=== PATIENT | female | born 1995 | race American Indian/Alaskan Native ===

== ENCOUNTER 2018-06-05 18:25 | Inpatient (IN) | payer MEDICAID ==
[2018-06-05] MEDS ORDERED: STADOL IV PRN (19:42)
[2018-06-05] MEDS ORDERED: MINERAL OIL PO PRN (19:42)
[2018-06-05] MEDS ORDERED: BRETHINE SUB-Q PRN (19:42)
[2018-06-05] MEDS ORDERED: BRETHINE IVP PRN (19:42)
[2018-06-05] MEDS ORDERED: PITOCin/NS 20 UNIT/1000ML DRIP 20 UNITS/1,000 ML BAG IV SCH (20:00)
[2018-06-05] MEDS ORDERED: XYLOCAINE 2% INFILTRATI ONE (20:00)
[2018-06-05] MEDS ORDERED: CERVIDIL VG ONE (20:42)
--- NOTE | 2018-06-05 21:01 | Ultrasound Report ---
FINAL REPORT EXAM: US OB LIMITED HISTORY: CONFIRM PRESENCE OF FHTs TECHNIQUE: Limited obstetrical ultrasound PRIORS: None. FINDINGS: LMP: 09/22/2017 clinical Age: 36 W 4 D US Age (average) 35 W 4 D LMP EDC 06/29/2018 US EDC 07/06/2018 Presentation: Cephalic Cardiac motion: No heart tones are noted on either power Doppler or color Doppler. movement: None visible during the exam. appearance: There is generalized subcutaneous edema of the soft tissues which is typically attributable to demise. IMPRESSION: No evidence for viability. No motion or cardiac activity is noted. Generalized subcutaneous edema of the fetus is seen which is typically attributed to demise.
[2018-06-05 21:41] LABS: Hematocrit 39.8 % (30.3-42.9); Hemoglobin 13.5 gm/dl (10.1-14.3); Mean Corpuscular HGB Conc 34 % (30-34); Mean Corpuscular Hemoglobin 31 pg (28-32); Mean Corpuscular Volume 92 fl (79-97); Platelet Count 164 K/mm3 (140-440); Red Blood Count 4.35 M/mm3 (3.65-5.03); Red Cell Distribution Width 13.2 % (13.2-15.2)
[2018-06-05 21:50] LABS: Amphetamine Screen,Urine PRESUMPTIVE NEGATIVE; Benzodiazepines Screen,Urine PRESUMPTIVE NEGATIVE; Cannabinoid Screen,Urine PRESUMPTIVE NEGATIVE; Cocaine Screen,Urine PRESUMPTIVE NEGATIVE; Methadone Screen,Urine PRESUMPTIVE NEGATIVE; Opiate Screen,Urine PRESUMPTIVE NEGATIVE
[2018-06-05] MEDS: ZOFRAN IV PRN (22:08)
[2018-06-05] MEDS: TYLENOL PO PRN (23:09)
[2018-06-05] MEDS ORDERED: AMBIEN PO PRN (23:14)
[2018-06-06] MEDS: LACTATED RINGERS 1,000 ML IV SCH ×3 (02:00→18:51)
[2018-06-06] MEDS ORDERED: ATIVAN IV ONE (02:23)
[2018-06-06] MEDS ORDERED: XYLOCAINE 2% INFILTRATI ONE (02:56)
[2018-06-06] MEDS ORDERED: ePHEDrine SULFATE IV PRN (02:56)
[2018-06-06] MEDS ORDERED: MINERAL OIL PO PRN (02:56)
[2018-06-06] MEDS ORDERED: BRETHINE SUB-Q PRN (02:56)
[2018-06-06] MEDS ORDERED: BRETHINE IVP PRN (02:56)
[2018-06-06] MEDS ORDERED: PITOCin/NS 30 UNIT/500ML 30 UNITS/500 ML BAG IV SCH ×2 (03:00)
[2018-06-06] MEDS ORDERED: PITOCin/NS 20 UNIT/1000ML DRIP 20 UNITS/1,000 ML BAG IV SCH (03:00)
--- NOTE | 2018-06-06 03:10 | History and Physical Report ---
History of Present Illness Date of examination: 06/06/18 Chief complaint: Decreased movement History of present illness: Pt is a 22yo BF EDC 06/29/18; EGA 36 4/7 weeks presents to L&D complaining of decreased movement x 2 weeks. She was sent to L&D after no FHT's obtained in the office - u/s confirmed demise. She received late care at [facility] at 29 weeks after transfer from [place] , and co-managed by [facility] for GDM. records are available. Past History Past Medical History: asthma Past Surgical History: no surgical history Family/Genetic History: none Social history: no significant social history, single - Obstetrical History Expected Date of Delivery: 06/29/18 Actual Gestation: 36 Week(s) 5 Day(s) : 1 Medications and Allergies Allergies Allergy/AdvReac Type Severity Reaction Status Date / Time No Known Allergies Allergy Unverified 06/05/18 18:38 Active Meds: Active Medications Acetaminophen (Tylenol) 650 mg PO Q6H PRN PRN Reason: Pain, Mild (1-3) Last Admin: 06/05/18 23:09 Dose: 650 mg Butorphanol Tartrate (Stadol) 2 mg IV Q2H PRN PRN Reason: Pain , Severe (7-10) Last Admin: 06/06/18 02:15 Dose: 2 mg Ephedrine Sulfate (Ephedrine Sulfate) 10 mg IV Q2M PRN PRN Reason: Hypotension Ephedrine Sulfate (Ephedrine Sulfate) 10 mg IV Q2M PRN PRN Reason: Hypotension Fentanyl (Sublimaze) 100 mcg IV Q2H PRN PRN Reason: Labor Pain Lactated Ringer's (Lactated Ringers) 1,000 mls @ 125 mls/hr IV DIRECT GAVIN Oxytocin/Sodium Chloride (Pitocin/Ns 20 Unit/1000ml Drip) 20 units in 1,000 mls @ 125 mls/hr IV DIRECT GAVIN Lactated Ringer's (Lactated Ringers) 1,000 mls @ 125 mls/hr IV DIRECT GAVIN Oxytocin/Sodium Chloride (Pitocin/Ns 20 Unit/1000ml Drip) 20 units in 1,000 mls @ 125 mls/hr IV DIRECT GAVIN Oxytocin/Sodium Chloride (Pitocin/Ns 30 Unit/500ml) 30 units in 500 mls @ 1 mls /hr IV TITR GAVIN; Protocol Oxytocin/Sodium Chloride (Pitocin/Ns 30 Unit/500ml) 30 units in 500 mls @ 4 mls /hr IV TITR GAVIN; Protocol Lidocaine (Xylocaine 2%) 20 ml INFILTRATI ONCE ONE Stop: 06/06/18 02:57 Mineral Oil (Mineral Oil) 30 ml PO QHS PRN PRN Reason: Constipation Mineral Oil (Mineral Oil) 30 ml PO QHS PRN PRN Reason: Constipation Ondansetron HCl (Zofran) 4 mg IV Q8H PRN PRN Reason: Nausea And Vomiting Last Admin: 06/05/18 22:08 Dose: 4 mg Terbutaline Sulfate (Brethine) 0.25 mg SUB-Q ONCE PRN PRN Reason: Hyperstimulation/Hypertonicity Terbutaline Sulfate (Brethine) 0.25 mg IVP ONCE PRN PRN Reason: Hyperstimulation/Hypertonicity Terbutaline Sulfate (Brethine) 0.25 mg SUB-Q ONCE PRN PRN Reason: Hyperstimulation/Hypertonicity Terbutaline Sulfate (Brethine) 0.25 mg IVP ONCE PRN PRN Reason: Hyperstimulation/Hypertonicity Zolpidem Tartrate (Ambien) 10 mg PO QHS PRN PRN Reason: Insomnia Review of Systems All systems: negative - Vital Signs Vital signs: Vital Signs Pulse BP 91 H 118/60 06/05/18 19:16 06/05/18 19:16 Temp Pulse Resp BP Pulse Ox 99.1 F 90 14 98/49 96 06/06/18 02:28 06/06/18 03:06 06/06/18 02:28 06/06/18 02:57 06/06/18 03:06 - Physical Exam Breasts: Positive: deferred Lungs: Positive: Clear to auscultation Abdomen: Positive: normal appearance, soft Genitourinary (Female): Positive: normal external genitalia Uterus: Positive: enlarged Extremities: Positive: normal - Obstetrical Uterine Contraction Monitor Mode: External Results Result Diagrams: 06/05/18 21:20 Abnormal lab results 06/05/18 Range/Units 21:04 POC Glucose 215 H (70-105) All other labs normal. Ultrasound: report reviewed Assessment and Plan - Patient Problems (1) 36 weeks gestation of Onset Date: 06/06/18 Current Visit: Yes Status: Acute Plan to address problem: A: IUP @ 36 5/7 weeks demise Uncontrolled GDM New onset seizures P: Admit to L&D for induction of labor Monitor BS's Obtain Hospitalist consultation re: possible seizures (2) demise > 22 weeks, delivered, current hospitalization Onset Date: 06/06/18 Current Visit: Yes Status: Acute (3) GDM (gestational diabetes mellitus) Onset Date: 06/06/18 Current Visit: Yes Status: Acute Qualifiers: Gestational diabetes mellitus control: diet-controlled Trimester: third trimester Qualified Code(s): O24.410 - Gestational diabetes mellitus in , diet controlled
[2018-06-06 06:28] LABS: INR 0.9 (0.87-1.13)
[2018-06-06 06:29] LABS: Partial Thromboplastin Time 26.4 Sec. (24.2-36.6)
[2018-06-06 07:01] LABS: Alanine Aminotransferase 17 units/L (7-56); Albumin 3.3 g/dL (3.9-5); BUN/Creatinine Ratio 12; Blood Urea Nitrogen 7 mg/dL (7-17); Calcium 8.9 mg/dL (8.4-10.2); Hemolysis Index 13
[2018-06-06] MEDS ORDERED: LOMOTIL PO PRN (11:38)
[2018-06-06] MEDS: [UNRECOGNIZED DRUG - OTHER] VG SCH ×2 (13:47→19:49)
[2018-06-06] MEDS: SUBLIMAZE IV PRN ×3 (15:09→21:32)
[2018-06-06] MEDS: ZOFRAN IV PRN (23:50)
[2018-06-07] MEDS ORDERED: D50W (25GM) Syringe IV PRN (00:28)
[2018-06-07] MEDS: LACTATED RINGERS 1,000 ML IV SCH ×4 (00:36→03:53)
[2018-06-07] MEDS: SUBLIMAZE IV PRN (00:40)
[2018-06-07] MEDS: HumuLIN R SUB-Q SCH ×2 (00:52→06:54)
[2018-06-07] MEDS ORDERED: NARCAN 2 MG/2 ML IV PRN (02:22)
--- NOTE | 2018-06-07 02:22 | Anesthesia Consultation ---
Anesthesia Consult and Med Hx Date of service: 06/07/18 - Airway ROM Head & Neck: Adequate Mental/Hyoid Distance: Adequate Mallampati Class: Class II Intubation Access Assessment: Probably Good - Pulmonary Exam CTA: Yes - Cardiac Exam Cardiac Exam: RRR - Pre-Operative Health Status ASA Pre-Surgery Classification: ASA2 Proposed Anesthetic Plan: Epidural - Pulmonary Hx Asthma: No - Cardiovascular System Hx Hypertension: No - Central Nervous System Hx Seizures: Yes (as a child last was 9 yrs old) Hx Psychiatric Problems: No - Endocrine Hx Renal Disease: No Hx Hypothyroidism: No Hx Hyperthyroidism: No - Hematic Hx Anemia: No Hx Sickle Cell Disease: No - Other Systems Hx Alcohol Use: No
[2018-06-07] MEDS: [UNRECOGNIZED DRUG - OTHER] VG SCH ×2 (02:23→10:04)
[2018-06-07] MEDS: ePHEDrine SULFATE IV PRN ×5 (02:49→03:15)
[2018-06-07] MEDS: fentaNYL-BUPIV 2 MCG/ML-0.125% 200 MCG/100 ML BAG EPIDURAL SCH ×2 (03:53→12:35)
[2018-06-07] MEDS: TYLENOL PO PRN ×2 (05:47→12:39)
--- NOTE | 2018-06-07 10:13 | Progress Note ---
Assessment and Plan - Patient Problems (1) 36 weeks gestation of Onset Date: 06/06/18 Current Visit: Yes Status: Acute Plan to address problem: A: IUP @ 36 4/7 weeks demise Uncontrolled GDM New onset seizures P: Continue with Prostin induction of labor Monitor BS's Expectant vaginal delivery (2) demise > 22 weeks, delivered, current hospitalization Onset Date: 06/06/18 Current Visit: Yes Status: Acute (3) GDM (gestational diabetes mellitus) Onset Date: 06/06/18 Current Visit: Yes Status: Acute Qualifiers: Gestational diabetes mellitus control: diet-controlled Trimester: third trimester Qualified Code(s): O24.410 - Gestational diabetes mellitus in , diet controlled Subjective - Subjective Date of service: 06/07/18 Principal diagnosis: IUP @ 36 5/7 weeks; IUFD; GDM Interval history: Pt is a 22yo BF EDC 06/29/18; EGA 36 4/7 weeks who presented to L&D complaining of decreased movement x 2 weeks. She was sent to L&D after no FHT's obtained in the office - u/s confirmed demise. She received cervidil followed by Prostin, and currently jesusita q 2 mins with epidural in place. Patient reports: contractions, no new complaints, no vaginal bleeding, no movement normal Objective - Vital Signs Vital Signs: Vital Signs - 12hr 06/06/18 06/06/18 06/06/18 22:11 22:16 22:21 Temperature Pulse Rate 79 93 H 91 H Respiratory Rate Blood Pressure O2 Sat by Pulse 98 99 98 Oximetry 06/06/18 06/06/18 06/06/18 22:26 22:31 22:36 Temperature Pulse Rate 99 H 94 H 99 H Respiratory Rate Blood Pressure O2 Sat by Pulse 99 97 98 Oximetry 06/06/18 06/06/18 06/06/18 22:41 22:46 23:54 Temperature 98.9 F Pulse Rate 93 H 100 H Respiratory 20 Rate Blood Pressure O2 Sat by Pulse 96 100 Oximetry 06/06/18 06/07/18 06/07/18 23:57 00:02 00:07 Temperature Pulse Rate 100 H 101 H 98 H Respiratory Rate Blood Pressure 126/77 O2 Sat by Pulse 99 97 98 Oximetry 06/07/18 06/07/18 06/07/18 00:09 00:12 00:17 Temperature Pulse Rate 115 H 107 H 106 H Respiratory Rate Blood Pressure O2 Sat by Pulse 93 99 98 Oximetry 06/07/18 06/07/18 06/07/18 00:21 00:22 00:27 Temperature Pulse Rate 89 99 H 99 H Respiratory Rate Blood Pressure O2 Sat by Pulse 94 98 98 Oximetry 06/07/18 06/07/18 06/07/18 00:32 00:33 00:37 Temperature Pulse Rate 113 H 112 H 73 Respiratory Rate Blood Pressure O2 Sat by Pulse 98 82 L 79 L Oximetry 06/07/18 06/07/18 06/07/18 00:38 00:42 00:46 Temperature Pulse Rate 86 92 H 85 Respiratory Rate Blood Pressure O2 Sat by Pulse 86 96 94 Oximetry 06/07/18 06/07/18 06/07/18 00:47 00:52 00:56 Temperature Pulse Rate 92 H 87 82 Respiratory Rate Blood Pressure O2 Sat by Pulse 93 94 94 Oximetry 06/07/18 06/07/18 06/07/18 00:57 01:02 01:03 Temperature Pulse Rate 84 82 87 Respiratory Rate Blood Pressure O2 Sat by Pulse 94 95 94 Oximetry 06/07/18 06/07/18 06/07/18 01:07 01:12 01:15 Temperature Pulse Rate 94 H 76 92 H Respiratory Rate Blood Pressure O2 Sat by Pulse 96 96 94 Oximetry 06/07/18 06/07/18 06/07/18 01:17 01:22 01:27 Temperature Pulse Rate 101 H 77 84 Respiratory Rate Blood Pressure O2 Sat by Pulse 95 95 96 Oximetry 06/07/18 06/07/18 06/07/18 01:32 01:37 01:42 Temperature Pulse Rate 90 86 119 H Respiratory Rate Blood Pressure O2 Sat by Pulse 99 97 98 Oximetry 06/07/18 06/07/18 06/07/18 02:23 02:31 02:32 Temperature 98.9 F Pulse Rate 111 H 121 H Respiratory Rate Blood Pressure 134/86 O2 Sat by Pulse 99 Oximetry 06/07/18 06/07/18 06/07/18 02:34 02:36 02:39 Temperature Pulse Rate 125 H 109 H 110 H Respiratory Rate Blood Pressure 141/82 136/64 139/84 O2 Sat by Pulse 99 Oximetry 06/07/18 06/07/18 06/07/18 02:40 02:41 02:42 Temperature Pulse Rate 98 H 103 H 104 H Respiratory Rate Blood Pressure 141/65 140/67 O2 Sat by Pulse 99 Oximetry 06/07/18 06/07/18 06/07/18 02:44 02:46 02:47 Temperature Pulse Rate 103 H 105 H 103 H Respiratory Rate Blood Pressure 137/60 140/63 O2 Sat by Pulse 98 Oximetry 06/07/18 06/07/18 06/07/18 02:51 02:52 02:54 Temperature Pulse Rate 98 H 97 H 100 H Respiratory Rate Blood Pressure 102/53 89/45 83/46 O2 Sat by Pulse 97 Oximetry 06/07/18 06/07/18 06/07/18 02:56 02:59 03:00 Temperature Pulse Rate 137 H 146 H 150 H Respiratory Rate Blood Pressure 133/74 99/58 113/61 O2 Sat by Pulse 98 Oximetry 06/07/18 06/07/18 06/07/18 03:02 03:04 03:06 Temperature Pulse Rate 154 H 146 H 142 H Respiratory Rate Blood Pressure 115/67 117/63 111/62 O2 Sat by Pulse 97 Oximetry 06/07/18 06/07/18 06/07/18 03:07 03:12 03:14 Temperature Pulse Rate 141 H 121 H 113 H Respiratory Rate Blood Pressure 101/51 104/54 O2 Sat by Pulse 97 97 Oximetry 06/07/18 06/07/18 06/07/18 03:17 03:22 03:27 Temperature Pulse Rate 113 H 123 H 116 H Respiratory Rate Blood Pressure 98/51 137/67 121/57 O2 Sat by Pulse 97 98 97 Oximetry 06/07/18 06/07/18 06/07/18 03:32 03:37 03:38 Temperature Pulse Rate 105 H 109 H 106 H Respiratory Rate Blood Pressure 118/62 116/55 O2 Sat by Pulse 97 98 Oximetry 06/07/18 06/07/18 06/07/18 03:42 03:47 03:52 Temperature Pulse Rate 106 H 105 H 97 H Respiratory Rate Blood Pressure 116/58 111/57 O2 Sat by Pulse 97 98 98 Oximetry 06/07/18 06/07/18 06/07/18 03:53 03:57 03:58 Temperature Pulse Rate 99 H 100 H 100 H Respiratory Rate Blood Pressure 116/61 118/59 O2 Sat by Pulse 98 Oximetry 2018 /20/18 / 03:59 04:02 04:03 Temperature 98.1 F Pulse Rate 109 H 104 H Respiratory 18 Rate Blood Pressure 115/57 O2 Sat by Pulse 98 Oximetry 06/07/18/18 / 04:07 04:12 04:17 Temperature Pulse Rate 95 H 106 H 103 H Respiratory Rate Blood Pressure O2 Sat by Pulse 98 98 98 Oximetry 06/07/18 06/07/18 06/07/18 04:19 04:22 04:27 Temperature Pulse Rate 114 H 106 H 101 H Respiratory Rate Blood Pressure 117/65 O2 Sat by Pulse 98 98 Oximetry 06/07/18 06/07/18/ 04:32 04:34 04:37 Temperature Pulse Rate 92 H 97 H 100 H Respiratory Rate Blood Pressure 114/57 O2 Sat by Pulse 98 98 Oximetry 06/07/18//18 06/07/18 04:42 04:47 04:50 Temperature Pulse Rate 104 H 104 H 105 H Respiratory Rate Blood Pressure 111/61 O2 Sat by Pulse 98 98 Oximetry 06/07/1818 06/07/18 04:52 04:57 05:02 Temperature Pulse Rate 96 H 101 H 95 H Respiratory Rate Blood Pressure O2 Sat by Pulse 98 98 99 Oximetry 06/07/18 06/07/18 06/07/18 05:04 05:07 05:12 Temperature Pulse Rate 115 H 102 H 100 H Respiratory Rate Blood Pressure 119/64 O2 Sat by Pulse 98 98 Oximetry 06/07/18 06/07/18 06/07/18 05:17 05:19 05:22 Temperature Pulse Rate 101 H 103 H 105 H Respiratory Rate Blood Pressure 120/61 O2 Sat by Pulse 98 99 Oximetry 20/18 /20/18 /20 05:27 05:32 05:36 Temperature Pulse Rate 104 H 122 H 130 H Respiratory Rate Blood Pressure 118/70 O2 Sat by Pulse 99 99 Oximetry 20/05 06/20/18 / 05:37 05:42 05:47 Temperature Pulse Rate 141 H 143 H 127 H Respiratory Rate Blood Pressure O2 Sat by Pulse 99 98 99 Oximetry 06/07/1818 06/07/18 05:52 05:57 06:00 Temperature 97.5 F L Pulse Rate 110 H 118 H Respiratory 16 Rate Blood Pressure O2 Sat by Pulse 98 99 Oximetry 06/07/18 06/07/18 06/07/18 06:02 06:07 06:12 Temperature Pulse Rate 114 H 119 H 107 H Respiratory Rate Blood Pressure O2 Sat by Pulse 98 98 99 Oximetry 18 /20/18 / 06:17 06:22 06:27 Temperature Pulse Rate 107 H 114 H 109 H Respiratory Rate Blood Pressure O2 Sat by Pulse 99 99 99 Oximetry 06/07/1806/07/18 06/07/18 06:32 06:37 06:42 Temperature Pulse Rate 108 H 112 H 115 H Respiratory Rate Blood Pressure O2 Sat by Pulse 100 100 99 Oximetry 06/07/18 06/07/18 06/07/18 06:47 06:49 06:52 Temperature Pulse Rate 121 H 115 H 107 H Respiratory Rate Blood Pressure 121/66 O2 Sat by Pulse 99 99 Oximetry 06/07/18 06/07/18 06/07/18 06:57 07:02 07:07 Temperature Pulse Rate 129 H 127 H 116 H Respiratory Rate Blood Pressure O2 Sat by Pulse 100 100 99 Oximetry 06/07/1806/07/18 06/07/18 07:12 07:17 07:22 Temperature Pulse Rate 127 H 132 H 141 H Respiratory Rate Blood Pressure O2 Sat by Pulse 98 100 100 Oximetry 06/07/1818 06/07/18 07:27 07:32 07:37 Temperature Pulse Rate 137 H 123 H 133 H Respiratory Rate Blood Pressure O2 Sat by Pulse 100 98 99 Oximetry 06/07/1818 06/07/18 07:42 07:47 07:50 Temperature Pulse Rate 126 H 124 H 125 H Respiratory Rate Blood Pressure 104/55 O2 Sat by Pulse 99 100 Oximetry 06/07/1820/18 06/07/18 07:52 07:57 08:02 Temperature Pulse Rate 115 H 117 H 112 H Respiratory Rate Blood Pressure O2 Sat by Pulse 99 99 100 Oximetry 06/07/18/20/18 06/07/18 08:07 08:12 08:17 Temperature Pulse Rate 121 H 120 H 127 H Respiratory Rate Blood Pressure O2 Sat by Pulse 100 99 100 Oximetry 06/07/18 06/07/18 06/07/18 08:20 08:22 08:27 Temperature Pulse Rate 68 148 H 120 H Respiratory Rate Blood Pressure O2 Sat by Pulse 85 99 100 Oximetry 06/07/18 06/07/18 06/07/18 08:32 08:37 08:42 Temperature Pulse Rate 127 H 126 H 124 H Respiratory Rate Blood Pressure O2 Sat by Pulse 99 99 99 Oximetry 06/07/18 06/07/18 06/07/18 08:47 08:49 08:52 Temperature Pulse Rate 122 H 130 H 130 H Respiratory Rate Blood Pressure 109/57 O2 Sat by Pulse 100 99 Oximetry 06/07/18 06/07/18 06/07/18 08:57 09:02 09:07 Temperature Pulse Rate 119 H 121 H 125 H Respiratory Rate Blood Pressure O2 Sat by Pulse 99 99 99 Oximetry 06/07/18 06/07/18 06/07/18 09:12 09:17 09:22 Temperature Pulse Rate 144 H 138 H 142 H Respiratory Rate Blood Pressure O2 Sat by Pulse 99 98 99 Oximetry 06/07/18 06/07/18 06/07/18 09:40 09:45 09:50 Temperature Pulse Rate 140 H 128 H 129 H Respiratory Rate Blood Pressure O2 Sat by Pulse 100 100 100 Oximetry 06/07/18 06/07/18 06/07/18 09:55 10:00 10:05 Temperature Pulse Rate 116 H 118 H 137 H Respiratory Rate Blood Pressure O2 Sat by Pulse 100 100 100 Oximetry 06/07/18 10:10 Temperature Pulse Rate 107 H Respiratory Rate Blood Pressure O2 Sat by Pulse 100 Oximetry - Exam Abdomen: Present: normal appearance, soft Uterus: Present: normal Cervical Dilatation: 5.5 (per nurse) Cervical Effacement Percentage: 90 (per nurse) station: -1 Uterine Contraction Pattern: Regular Uterine Tone Measurement Phase: Contraction Uterine Contraction Intensity: Moderate - Labs Labs: Abnormal Labs 06/05/18 06/06/18 06/06/18 21:04 02:38 05:52 Sodium 135 L Chloride 97.4 L Creatinine 0.6 L Glucose 210 H POC Glucose 215 H 225 H Hemoglobin A1c Total Protein 5.7 L Albumin 3.3 L 06/06/18 06/06/18 06/07/18 05:52 18:07 00:55 Sodium Chloride Creatinine Glucose POC Glucose 265 H 250 H Hemoglobin A1c 9.8 H Total Protein Albumin 06/07/18 05:51 Sodium Chloride Creatinine Glucose POC Glucose 241 H Hemoglobin A1c Total Protein Albumin Laboratory Results - last 24 hr 06/05/18 06/06/18 06/07/18 21:20 18:07 00:55 POC Glucose 265 H 250 H RPR Nonreactive 06/07/18 05:51 POC Glucose 241 H RPR
[2018-06-07] MEDS ORDERED: ATIVAN IV ONE (10:14)
[2018-06-07] MEDS ORDERED: XYLOCAINE 2% INFILTRATI ONE (15:07)
--- NOTE | 2018-06-07 15:39 | Procedure Note ---
OB Delivery Note - Delivery Date of Delivery: 06/07/18 Surgeon: LIBBY BECK Estimated blood loss: 300cc - Vaginal Delivery presentation: vertex Delivery position: OA Intrapartum events: PROM->1hr before delivery, shoulder dystocia Delivery induction: cervidil Delivery augmentation: rupture of membranes Delivery monitor: external uterine Route of delivery: vacuum extraction Indicators for instrumentation: maternal exhaustion Delivery placenta: spontaneous Delivery cord: 3 umbilical vessels Episiotomy: none Delivery laceration: 3rd degree Delivery repair: vicryl Anesthesia: epidural Delivery comments: Infant delivered with the aid of a vacuum - 2 pulls, 1 pop-off, followed by shoulder dystocia resolved by delivery of the posterior arm followed by rotation of the body. - Infant A at 1 minute: 0 at 5 minutes: 0 Infant Gender: Female ([id number])
[2018-06-07] MEDS ORDERED: MILK OF MAGNESIA PO PRN (15:50)
[2018-06-07] MEDS ORDERED: DULCOLAX PR PRN (15:50)
[2018-06-07] MEDS ORDERED: TUCKS PAD TP PRN (15:50)
[2018-06-07] MEDS ORDERED: PHENERGAN PR PRN (15:50)
[2018-06-07] MEDS ORDERED: TYLENOL PO PRN (15:50)
[2018-06-07] MEDS ORDERED: BENADRYL PO PRN (15:50)
[2018-06-07] MEDS ORDERED: LANSINOH TP PRN (15:50)
[2018-06-07] MEDS ORDERED: ZOFRAN IV PRN (15:50)
[2018-06-07] MEDS ORDERED: PHENERGAN PO PRN (15:50)
[2018-06-07] MEDS ORDERED: SODIUM CHLORIDE FLUSH SYRINGE 10 ML IV NR (16:00)
[2018-06-07] MEDS ORDERED: PITOCin/NS 20 UNIT/1000ML DRIP 20 UNITS/1,000 ML BAG IV SCH (16:00)
[2018-06-07] MEDS: NORCO 5/325 PO PRN (18:15)
[2018-06-07] MEDS: FEOSOL PO SCH (23:01)
[2018-06-07] MEDS: COLACE PO SCH (23:02)
[2018-06-07] MEDS: MOTRIN PO SCH (23:02)
[2018-06-08] MEDS: HumuLIN R SUB-Q SCH ×4 (00:37→18:29)
[2018-06-08] MEDS: MOTRIN PO SCH ×2 (04:21→13:15)
[2018-06-08 05:48] LABS: Hemoglobin 11.2 gm/dl (10.1-14.3)
[2018-06-08] MEDS ORDERED: M-M-R II VACCINE SUB-Q ONE (06:00)
[2018-06-08] MEDS ORDERED: BOOSTRIX IM ONE (06:00)
--- NOTE | 2018-06-08 10:16 | Progress Note ---
Assessment and Plan A: day 1 S/P VAVD of stillborn infant (IUFD). P: Will put in case management consult for grief counseling. Anticipate discharge tomorrow. Subjective - Subjective Date of service: 06/08/18 Principal diagnosis: day 1 S/P VAVD following IUFD Interval history: day 1 S/P VAVD following IUFD. Patient is voiding without difficulty and ambulating well. Tolerating a regular diet without nausea or vomiting. Patient reports small amount of lochia. Patient denies headache, chest pain, cough, shortness of breath, leg pain, symptoms of depression, or heavy bleeding. Patient reports: appetite normal, voiding normally, pain well controlled, flatus , ambulating normally : Objective - Vital Signs Latest vital signs: Vital Signs Temp Pulse Resp BP Pulse Ox 06/08/18 08:40 98.4 F 94 H 18 115/68 06/08/18 04:21 17 06/08/18 04:20 98.2 F 102 H 18 105/73 06/08/18 00:00 98.4 F 106 H 18 110/59 97 06/07/18 23:02 18 06/07/18 18:45 97.9 F 120 H 18 113/63 99 06/07/18 15:10 134 H 100 06/07/18 15:05 153 H 94 06/07/18 14:31 157 H 100 06/07/18 14:26 139 H 100 06/07/18 14:21 149 H 99 06/07/18 14:16 142 H 100 06/07/18 14:10 137 H 98 06/07/18 14:05 147 H 100 06/07/18 14:00 98.7 F 128 H 99 06/07/18 13:55 134 H 100 06/07/18 13:50 137 H 100 06/07/18 13:45 129 H 100 06/07/18 13:40 125 H 100 06/07/18 13:35 145 H 100 06/07/18 13:30 136 H 100 06/07/18 13:25 141 H 100 06/07/18 13:20 153 H 100 06/07/18 13:15 142 H 100 06/07/18 13:10 154 H 100 06/07/18 13:05 151 H 99 06/07/18 13:00 142 H 100 07/20/18 12:55 149 H 100 18 12:50 141 H 100 18 12:45 145 H 100 18 12:40 143 H 100 18 12:38 140 H 94 18 12:35 151 H 100 18 12:30 141 H 100 18 12:25 133 H 100 06/07/18 12:20 133 H 100 06/07/18 12:15 141 H 100 06/07/18 12:10 149 H 97 06/07/18 12:08 149 H 91 06/07/18 12:05 138 H 100 06/07/18 12:00 99.7 F H 135 H 22 125/87 98 06/07/18 11:57 147 H 92 06/07/18 11:55 125 H 100 06/07/18 11:50 147 H 100 06/07/18 11:45 137 H 100 06/07/18 11:40 131 H 100 06/07/18 11:35 120 H 100 06/07/18 11:30 122 H 100 18 11:25 116 H 100 06/07/18 11:20 120 H 100 18 11:15 124 H 100 06/07/18 11:10 130 H 100 06/07/18 11:05 127 H 100 06/07/18 11:00 138 H 100 18 10:55 143 H 100 18 10:50 110 H 100 18 10:45 105 H 100 06/07/18 10:40 117 H 100 06/07/18 10:35 108 H 100 18 10:30 110 H 100 18 10:25 114 H 100 18 10:20 110 H 100 18 10:15 99.2 F 111 H 100 Intake and Output 06/07/1818 06/08/18 23:59 07:59 15:59 Intake Total 360 Output Total 500 Balance -140 Intake: Oral 360 Output: Urine 500 Void 500 Other: Total, Intake Amount 360 Total, Output Amount 500 # Voids Void 1 - Exam Breasts: Present: deferred Cardiovascular: Present: Regular rate, Normal S1, Normal S2, No murmurs Lungs: Present: Clear to auscultation Abdomen: Present: normal appearance, soft. Absent: distention, tenderness, guarding, rigidity Uterus: Present: normal, firm, fundal height below umbilicus. Absent: bogginess , tenderness Extremities: Present: normal. Absent: tenderness, edema - Labs Labs: Abnormal lab results 06/08/18 06/08/18 Range/Units 00:26 06:31 POC Glucose 344 H 199 H (70-105)
[2018-06-08] MEDS: FEOSOL PO SCH (12:31)
[2018-06-08] MEDS: COLACE PO SCH (12:31)
[2018-06-08] MEDS: PRENATAL VITAMIN PO SCH (12:31)
[2018-06-08] MEDS: NORCO 5/325 PO PRN (14:04)
--- NOTE | 2018-06-08 19:57 | History and Physical Report ---
History of Present Illness Date of examination: 06/08/18 Date of admission: 06/05/18 18:26 Chief complaint: Chief complaint : New onset seizures on 06/06/2018 History of present illness: History of present illness: IUP @ 36 5/7 weeks with demise. Uncontrolled gestational diabetes mellitus New onset seizures----tonic-clonic seizures lasting for a few minutes. No tongue biting. Past History Past Medical History: diabetes Past Surgical History: No surgical history Social history: no significant social history, single Medications and Allergies Allergies Allergy/AdvReac Type Severity Reaction Status Date / Time No Known Allergies Allergy Unverified 06/05/18 18:38 Home Medications Medication Instructions Recorded Confirmed Last Taken Type No Known Home Medications [No 06/06/18 06/06/18 Unknown History Reported Home Medications] Active Meds: Active Medications Acetaminophen (Tylenol) 650 mg PO Q6H PRN PRN Reason: Pain, Mild (1-3) Last Admin: 06/07/18 12:39 Dose: 650 mg Acetaminophen/Hydrocodone Bitart ([place] 5/325) 2 each PO Q6H PRN PRN Reason: Pain, Moderate (4-6) Last Admin: 06/08/18 14:04 Dose: 2 each Bisacodyl (Dulcolax) 10 mg DC BID PRN PRN Reason: Constipation Dextrose (D50w (25gm) Syringe) 50 ml IV PRN PRN PRN Reason: Hypoglycemia Diphenhydramine HCl (Benadryl) 25 mg PO Q6H PRN PRN Reason: Itching Docusate Sodium (Colace) 100 mg PO BID [facility] Last Admin: 06/08/18 12:31 Dose: 100 mg Ferrous Sulfate (Feosol) 325 mg PO BID [facility] Last Admin: 06/08/18 12:31 Dose: 325 mg Oxytocin/Sodium Chloride (Pitocin/Ns 20 Unit/1000ml Drip) 20 units in 1,000 mls @ 125 mls/hr IV DIRECT GAVIN Oxytocin/Sodium Chloride (Pitocin/Ns 20 Unit/1000ml Drip) 20 units in 1,000 mls @ 250 mls/hr IV DIRECT GAVIN Ibuprofen (Motrin) 600 mg PO Q6H [facility] Last Admin: 06/08/18 13:15 Dose: 600 mg Insulin Human Regular (Humulin R) 0 units SUB-Q Q6HR [facility]; Protocol Last Admin: 06/08/18 18:29 Dose: 4 units Magnesium Hydroxide (Milk Of Magnesia) 30 ml PO HS PRN PRN Reason: Constipation Multi-Ingredient Ointment (Lansinoh) 1 applic TP PRN PRN PRN Reason: Sore Nipples Multivitamins/Iron/Calcium ( Vitamin) 1 each PO QDAY G[facility] Last Admin: 06/08/18 12:31 Dose: 1 each Ondansetron HCl (Zofran) 4 mg IV Q8H PRN PRN Reason: Nausea And Vomiting Last Admin: 06/06/18 23:50 Dose: 4 mg Ondansetron HCl (Zofran) 4 mg IV Q8H PRN PRN Reason: Nausea And Vomiting Promethazine HCl (Phenergan) 25 mg DC Q6H PRN PRN Reason: Nausea And Vomiting Promethazine HCl (Phenergan) 25 mg PO Q6H PRN PRN Reason: Nausea And Vomiting Witch Josefa/Glycerin (Tucks Pad) 1 each TP PRN PRN PRN Reason: Hemorrhoid/cleansing/soothing Review of Systems All systems: negative Neurological: seizures Exam - Constitutional Vitals: Temp Pulse Resp BP Pulse Ox 98.5 F 88 18 96/50 97 06/08/18 16:34 06/08/18 16:34 06/08/18 16:34 06/08/18 16:34 06/08/18 00:00 General appearance: Present: no acute distress, well-nourished - EENT Eyes: Present: PERRL ENT: hearing intact, clear oral mucosa - Neck Neck: Present: supple, normal ROM - Respiratory Respiratory effort: normal Respiratory: bilateral: CTA - Cardiovascular Heart Sounds: Present: S1 & S2. Absent: rub, click - Extremities Extremities: pulses symmetrical, No edema Peripheral Pulses: within normal limits - Abdominal General gastrointestinal: Present: soft, non-tender, non-distended, normal bowel sounds Female genitourinary: Present: normal - Integumentary Integumentary: Present: clear, warm, dry - Musculoskeletal Musculoskeletal: gait normal, strength equal bilaterally - Psychiatric Psychiatric: appropriate mood/affect, intact judgment & insight - Neurologic Neurologic: CNII-XII intact, moves all extremities Results - Labs CBC & Chem 7: 06/08/18 05:17 06/06/18 05:52 Labs: Laboratory Last Values WBC 6.9 K/mm3 (4.5-11.0) 06/05/18 21:20 RBC 4.35 M/mm3 (3.65-5.03) 06/05/18 21:20 Hgb 11.2 gm/dl (10.1-14.3) 06/08/18 05:17 Hct 34.0 % (30.3-42.9) 06/08/18 05:17 MCV 92 fl (79-97) 06/05/18 21:20 MCH 31 pg (28-32) 06/05/18 21:20 MCHC 34 % (30-34) 06/05/18 21:20 RDW 13.2 % (13.2-15.2) 06/05/18 21:20 Plt Count 164 K/mm3 (140-440) 06/05/18 21:20 PT 12.6 Sec. (12.2-14.9) 06/06/18 05:52 INR 0.90 (0.87-1.13) 06/06/18 05:52 APTT 26.4 Sec. (24.2-36.6) 06/06/18 05:52 Fibrinogen 447 mg/dl (211-480) 06/06/18 05:52 Sodium 135 mmol/L (137-145) L 06/06/18 05:52 Potassium 4.3 mmol/L (3.6-5.0) 06/06/18 05:52 Chloride 97.4 mmol/L (98-107) L 06/06/18 05:52 Carbon Dioxide 23 mmol/L (22-30) 06/06/18 05:52 Anion Gap 19 mmol/L 06/06/18 05:52 BUN 7 mg/dL (7-17) 06/06/18 05:52 Creatinine 0.6 mg/dL (0.7-1.2) L 06/06/18 05:52 Estimated GFR > 60 ml/min 06/06/18 05:52 BUN/Creatinine Ratio 12 % 06/06/18 05:52 Glucose 210 mg/dL (65-100) H 06/06/18 05:52 POC Glucose 256 (70-105) H 06/08/18 18:15 Hemoglobin A1c 9.8 % (4-6) H 06/06/18 05:52 Calcium 8.9 mg/dL (8.4-10.2) 06/06/18 05:52 Total Bilirubin 0.60 mg/dL (0.1-1.2) 06/06/18 05:52 AST 19 units/L (5-40) 06/06/18 05:52 ALT 17 units/L (7-56) 06/06/18 05:52 Alkaline Phosphatase 115 units/L (35-129) 06/06/18 05:52 Total Protein 5.7 g/dL (6.3-8.2) L 06/06/18 05:52 Albumin 3.3 g/dL (3.9-5) L 06/06/18 05:52 Albumin/Globulin Ratio 1.4 % 06/06/18 05:52 Urine Opiates Screen Presumptive negative 06/05/18 21:20 Urine Methadone Screen Presumptive negative 06/05/18 21:20 Ur Barbiturates Screen Presumptive negative 06/05/18 21:20 Ur Phencyclidine Scrn Presumptive negative 06/05/18 21:20 Ur Amphetamines Screen Presumptive negative 06/05/18 21:20 U Benzodiazepines Scrn Presumptive negative 06/05/18 21:20 Urine Cocaine Screen Presumptive negative 06/05/18 21:20 U Marijuana (THC) Screen Presumptive negative 06/05/18 21:20 Drugs of Abuse Note Disclamer 06/05/18 21:20 RPR Nonreactive (Nonreactive) 06/05/18 21:20 Blood Type O POSITIVE 06/05/18 21:20 Antibody Screen Negative 06/05/18 21:20 - Imaging and Cardiology Imaging and Cardiology: Abdominal ultrasound IMPRESSION: No evidence for viability. No motion or cardiac activity is noted. Generalized subcutaneous edema of the fetus is seen which is typically attributed to demise. Assessment and Plan Advance Directives: Yes (full code) VTE prophylaxis?: Chemical Plan of care discussed with patient/family: Yes - Patient Problems (1) New onset seizure Current Visit: Yes Status: Acute Plan to address problem: Possible conversion reaction IV Keppra initiated Patient to follow with neurology as outpatient Also Ativan 1 mg every 3 to every 4 when necessary (2) GDM (gestational diabetes mellitus) Onset Date: 06/06/18 Current Visit: Yes Status: Acute Qualifiers: Gestational diabetes mellitus control: diet-controlled Trimester: third trimester Qualified Code(s): O24.410 - Gestational diabetes mellitus in , diet controlled Plan to address problem: Insulin coverage for now Check hemoglobin A1c (3) demise > 22 weeks, delivered, current hospitalization Onset Date: 06/06/18 Current Visit: Yes Status: Acute Plan to address problem: 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
[2018-06-08] MEDS ORDERED: ATIVAN IV ONE (20:00)
[2018-06-08] MEDS ORDERED: MAGNESIUM SULFATE 4GM/100ML 0 GM/0 ML BAG IV ONE (20:00)
[2018-06-08] MEDS ORDERED: LACTATED RINGERS 1,000 ML ONE (20:13)
[2018-06-08] MEDS: KEPPRA 750 MG in NACL 0.9% 100 ML IV SCH (20:34)
[2018-06-09] MEDS: LOVENOX SUB-Q SCH ×2 (02:37→21:54)
[2018-06-09] MEDS: MOTRIN PO SCH ×6 (07:01→21:53)
[2018-06-09] MEDS: HumuLIN R SUB-Q SCH ×5 (07:06→21:04)
[2018-06-09] MEDS: FEOSOL PO SCH ×3 (07:47→21:53)
[2018-06-09] MEDS: COLACE PO SCH ×3 (07:47→21:53)
[2018-06-09] MEDS: KEPPRA 750 MG in NACL 0.9% 100 ML IV SCH ×3 (07:47→21:55)
--- NOTE | 2018-06-09 10:12 | Progress Note ---
Assessment and Plan PPD# 2 s/p VAVD of IUFD -New onset seizure d/o P: -Spoke with hospitalist, Dr Jeong. We will continue Keppra and observed for 24 more hours -Continue routine care -Anticipate discharge in 24-48 hrs - Patient Problems (1) demise > 22 weeks, delivered, current hospitalization Onset Date: 06/06/18 Current Visit: Yes Status: Acute (2) New onset seizure Current Visit: Yes Status: Acute Subjective - Subjective Date of service: 06/09/18 Principal diagnosis: day 2 S/P VAVD following IUFD Interval history: Patient seen and examined, stable doing well. No further seizure episode overnight No fever or chills, appropriate lochial, adequate bowel and bladder function Patient reports: appetite normal, voiding normally, pain well controlled [place]: Objective - Vital Signs Latest vital signs: Vital Signs Temp Pulse Resp BP BP Pulse Ox 06/09/18 08:32 97.8 F 111 H 18 103/52 99 06/09/18 04:42 98.2 F 97 H 18 102/55 97 06/09/18 00:00 98.6 F 100 H 20 114/64 06/08/18 21:20 98.0 F 102 H 20 118/73 06/08/18 19:55 104 H 20 134/75 100 06/08/18 19:38 117 H 22 143/89 100 06/08/18 16:34 98.5 F 88 18 96/50 06/08/18 12:00 98.8 F 84 18 99/58 Intake and Output 06/08/18 06/09/18 06/09/18 23:59 07:59 15:59 Intake Total 560 Balance 560 Intake: Oral 560 Other: Total, Intake Amount 240 # Voids Void 1 - Exam Abdomen: Present: normal appearance, soft. Absent: distention, tenderness, guarding, rigidity Uterus: Present: firm, fundal height below umbilicus Extremities: Present: normal - Labs Labs: Abnormal lab results 06/08/18 06/08/18 06/08/18 Range/Units 12:07 18:15 20:00 POC Glucose 184 H 256 H 238 H (70-105) 06/09/18 06/09/18 Range/Units 00:31 07:10 POC Glucose 108 H 121 H (70-105)
[2018-06-09] MEDS: NORCO 5/325 PO PRN (12:28)
[2018-06-09] MEDS: ATIVAN IV PRN (14:20)
--- NOTE | 2018-06-09 16:17 | Progress Note ---
Assessment and Plan Assessment and plan: Patient is 22 yo woman with a history childhood sz which resolved in adolescence (or just prior to adolescence) who presented with miscarriage. She delivered still born. Then developed sz like activity and Hospitalist were consulted. 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 History Interval history: Patient was seen and examined. Follow-up on current diagnosis of seizures. Overnight uneventful. Patient denies any chest pain, shortness breath, nausea/ vomiting or severe headaches. Imaging, nursing note, chart, labs and old chart reviewed. Discussed with patient with mother and father and sister at bedside Hospitalist Physical - Physical exam Narrative exam: GEN: WDWN, NAD, Awake, drowsy Orientated x 3 HEENT: NCAT, EOMI, PERRL, OP Clear NECK: supple, no adenopathy, no thyromegaly, no JVD CVS/HEART: RRR, normal S1S2, pulses present bilaterally CHEST/LUNGS: CTA B, Symmetrical chest expansion, good air entry bilaterally GI/Abdomen: soft, nd, mild diffuse tender, good bowel sounds, no guarding or rebound /Bladder: no suprapubic tenderness, no CVA or paraspinal tenderness EXT/Skin: no c/c/e, no obvious rash MSK: FROM x 4 Neuro: CN 2-12 grossly intact, no new focal deficits Psych: calm - Constitutional Vitals: Temp Pulse Resp BP Pulse Ox 97.7 F 95 H 18 125/66 99 06/09/18 12:38 06/09/18 12:38 06/09/18 12:38 06/09/18 12:38 06/09/18 12:38 General appearance: Present: no acute distress, well-nourished Results - Labs CBC & Chem 7: 06/08/18 05:17 06/06/18 05:52 Labs: Laboratory Last Values WBC 6.9 K/mm3 (4.5-11.0) 06/05/18 21:20 RBC 4.35 M/mm3 (3.65-5.03) 06/05/18 21:20 Hgb 11.2 gm/dl (10.1-14.3) 06/08/18 05:17 Hct 34.0 % (30.3-42.9) 06/08/18 05:17 MCV 92 fl (79-97) 06/05/18 21:20 MCH 31 pg (28-32) 06/05/18 21:20 MCHC 34 % (30-34) 06/05/18 21:20 RDW 13.2 % (13.2-15.2) 06/05/18 21:20 Plt Count 164 K/mm3 (140-440) 06/05/18 21:20 PT 12.6 Sec. (12.2-14.9) 06/06/18 05:52 INR 0.90 (0.87-1.13) 06/06/18 05:52 APTT 26.4 Sec. (24.2-36.6) 06/06/18 05:52 Fibrinogen 447 mg/dl (211-480) 06/06/18 05:52 Sodium 135 mmol/L (137-145) L 06/06/18 05:52 Potassium 4.3 mmol/L (3.6-5.0) 06/06/18 05:52 Chloride 97.4 mmol/L (98-107) L 06/06/18 05:52 Carbon Dioxide 23 mmol/L (22-30) 06/06/18 05:52 Anion Gap 19 mmol/L 06/06/18 05:52 BUN 7 mg/dL (7-17) 06/06/18 05:52 Creatinine 0.6 mg/dL (0.7-1.2) L 06/06/18 05:52 Estimated GFR > 60 ml/min 06/06/18 05:52 BUN/Creatinine Ratio 12 % 06/06/18 05:52 Glucose 210 mg/dL (65-100) H 06/06/18 05:52 POC Glucose 134 (70-105) H 06/09/18 12:50 Hemoglobin A1c 9.8 % (4-6) H 06/06/18 05:52 Calcium 8.9 mg/dL (8.4-10.2) 06/06/18 05:52 Total Bilirubin 0.60 mg/dL (0.1-1.2) 06/06/18 05:52 AST 19 units/L (5-40) 06/06/18 05:52 ALT 17 units/L (7-56) 06/06/18 05:52 Alkaline Phosphatase 115 units/L (35-129) 06/06/18 05:52 Total Protein 5.7 g/dL (6.3-8.2) L 06/06/18 05:52 Albumin 3.3 g/dL (3.9-5) L 06/06/18 05:52 Albumin/Globulin Ratio 1.4 % 06/06/18 05:52 Urine Opiates Screen Presumptive negative 06/05/18 21:20 Urine Methadone Screen Presumptive negative 06/05/18 21:20 Ur Barbiturates Screen Presumptive negative 06/05/18 21:20 Ur Phencyclidine Scrn Presumptive negative 06/05/18 21:20 Ur Amphetamines Screen Presumptive negative 06/05/18 21:20 U Benzodiazepines Scrn Presumptive negative 06/05/18 21:20 Urine Cocaine Screen Presumptive negative 06/05/18 21:20 U Marijuana (THC) Screen Presumptive negative 06/05/18 21:20 Drugs of Abuse Note Disclamer 06/05/18 21:20 RPR Nonreactive (Nonreactive) 06/05/18 21:20 Blood Type O POSITIVE 06/05/18 21:20 Antibody Screen Negative 06/05/18 21:20
[2018-06-09] MEDS: GLUCOPHAGE PO SCH ×2 (16:56→21:00)
[2018-06-09] MEDS: PRENATAL VITAMIN PO SCH (21:01)
[2018-06-09] MEDS: HumaLOG SUB-Q SCH ×2 (21:01→21:02)
[2018-06-10] MEDS: MOTRIN PO SCH ×4 (04:58→23:12)
[2018-06-10] MEDS: HumaLOG SUB-Q SCH ×5 (04:59→23:09)
[2018-06-10] MEDS: HumuLIN R SUB-Q SCH ×4 (04:59→19:21)
[2018-06-10] MEDS: NORCO 5/325 PO PRN (10:10)
[2018-06-10] MEDS: PRENATAL VITAMIN PO SCH (10:56)
[2018-06-10] MEDS: FEOSOL PO SCH ×2 (10:56→23:09)
[2018-06-10] MEDS: COLACE PO SCH ×2 (10:56→23:09)
[2018-06-10] MEDS: KEPPRA 750 MG in NACL 0.9% 100 ML IV SCH (10:56)
[2018-06-10] MEDS: GLUCOPHAGE PO SCH ×2 (10:58→19:01)
[2018-06-10] MEDS: ATIVAN IV PRN (11:25)
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
--- NOTE | 2018-06-10 13:10 | Progress Note ---
Assessment and Plan Assessment and plan: Patient is 22 yo woman with a history childhood sz which resolved in adolescence (or just prior to adolescence) who presented with miscarriage. She delivered still born. Then patient developed sz like activity and Hospitalists were consulted. 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 History Interval history: Patient was seen and examined. Follow-up on current diagnosis of seizures. Overnight uneventful. Patient denies any chest pain, shortness breath, nausea/ vomiting or severe headaches. Imaging, nursing note, chart, labs and old chart reviewed. Hospitalist Physical - Physical exam Narrative exam: GEN: WDWN, NAD, Awake, drowsy Orientated x 3 HEENT: NCAT, EOMI, PERRL, OP Clear NECK: supple, no adenopathy, no thyromegaly, no JVD CVS/HEART: RRR, normal S1S2, pulses present bilaterally CHEST/LUNGS: CTA B, Symmetrical chest expansion, good air entry bilaterally GI/Abdomen: soft, nd, mild diffuse tender, good bowel sounds, no guarding or rebound /Bladder: no suprapubic tenderness, no CVA or paraspinal tenderness EXT/Skin: no c/c/e, no obvious rash MSK: FROM x 4 Neuro: CN 2-12 grossly intact, no new focal deficits Psych: calm - Constitutional Vitals: Temp Pulse Resp BP Pulse Ox 97.8 F 80 18 124/79 99 06/10/18 10:01 06/10/18 10:01 06/10/18 10:01 06/10/18 11:32 06/10/18 10:01 General appearance: Present: no acute distress, well-nourished Results - Labs CBC & Chem 7: 06/08/18 05:17 06/06/18 05:52 Labs: Laboratory Last Values WBC 6.9 K/mm3 (4.5-11.0) 06/05/18 21:20 RBC 4.35 M/mm3 (3.65-5.03) 06/05/18 21:20 Hgb 11.2 gm/dl (10.1-14.3) 06/08/18 05:17 Hct 34.0 % (30.3-42.9) 06/08/18 05:17 MCV 92 fl (79-97) 06/05/18 21:20 MCH 31 pg (28-32) 06/05/18 21:20 MCHC 34 % (30-34) 06/05/18 21:20 RDW 13.2 % (13.2-15.2) 06/05/18 21:20 Plt Count 164 K/mm3 (140-440) 06/05/18 21:20 PT 12.6 Sec. (12.2-14.9) 06/06/18 05:52 INR 0.90 (0.87-1.13) 06/06/18 05:52 APTT 26.4 Sec. (24.2-36.6) 06/06/18 05:52 Fibrinogen 447 mg/dl (211-480) 06/06/18 05:52 Sodium 135 mmol/L (137-145) L 06/06/18 05:52 Potassium 4.3 mmol/L (3.6-5.0) 06/06/18 05:52 Chloride 97.4 mmol/L (98-107) L 06/06/18 05:52 Carbon Dioxide 23 mmol/L (22-30) 06/06/18 05:52 Anion Gap 19 mmol/L 06/06/18 05:52 BUN 7 mg/dL (7-17) 06/06/18 05:52 Creatinine 0.6 mg/dL (0.7-1.2) L 06/06/18 05:52 Estimated GFR > 60 ml/min 06/06/18 05:52 BUN/Creatinine Ratio 12 % 06/06/18 05:52 Glucose 210 mg/dL (65-100) H 06/06/18 05:52 POC Glucose 109 (70-105) H 06/10/18 06:57 Hemoglobin A1c 9.8 % (4-6) H 06/06/18 05:52 Calcium 8.9 mg/dL (8.4-10.2) 06/06/18 05:52 Total Bilirubin 0.60 mg/dL (0.1-1.2) 06/06/18 05:52 AST 19 units/L (5-40) 06/06/18 05:52 ALT 17 units/L (7-56) 06/06/18 05:52 Alkaline Phosphatase 115 units/L (35-129) 06/06/18 05:52 Total Protein 5.7 g/dL (6.3-8.2) L 06/06/18 05:52 Albumin 3.3 g/dL (3.9-5) L 06/06/18 05:52 Albumin/Globulin Ratio 1.4 % 06/06/18 05:52 Urine Opiates Screen Presumptive negative 06/05/18 21:20 Urine Methadone Screen Presumptive negative 06/05/18 21:20 Ur Barbiturates Screen Presumptive negative 06/05/18 21:20 Ur Phencyclidine Scrn Presumptive negative 06/05/18 21:20 Ur Amphetamines Screen Presumptive negative 06/05/18 21:20 U Benzodiazepines Scrn Presumptive negative 06/05/18 21:20 Urine Cocaine Screen Presumptive negative 06/05/18 21:20 U Marijuana (THC) Screen Presumptive negative 06/05/18 21:20 Drugs of Abuse Note Disclamer 06/05/18 21:20 RPR Nonreactive (Nonreactive) 06/05/18 21:20 Blood Type O POSITIVE 06/05/18 21:20 Antibody Screen Negative 06/05/18 21:20
[2018-06-10] MEDS: TYLENOL PO PRN (14:30)
--- NOTE | 2018-06-10 19:04 | History and Physical Report ---
History of Present Illness Date of examination: 06/10/18 Date of admission: 06/05/18 18:26 Chief complaint: BOTTOM LINE NEURO CONSULT: Hx reviewed, tests reviewed, patient examined. She apparently had a spell witnessed by nurse Josefina with whom I spoke. The nurse noted the patient when her mother came into the room (the mother has ten children) to symmetricall quivver both arms stretch out by her sides, flutter her eyelashes and assist the nurses with making her bed by moving over while all this was going on. She then walked to the bathroom and followed all commands and seemed perfectly normal immeciately following all this. No tongue biting. No loss GI or continence. Her mother did say that the patient used to have "seizures" when a child up to the age of [age]". she could not recall the name of the seizure med she was on. no sx since age [age]. Neuro exam near normal save for patient not being oriented to president. Otherwise mental status, CN 2 - 12, MOT, SENS, CEREB, and reflex exams all nl. Dx IMP: 1. 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 2. S/P still of fetus at 22 weeks RECC: 1. She needs EEG and CT of head. If not ordered, I will do so. 2. See no need for AED Rx 3. Go from there. Urszula Holland MD Past History Past Medical History: other (Asthma) Past Surgical History: No surgical history Social history: lives with family Medications and Allergies Allergies Allergy/AdvReac Type Severity Reaction Status Date / Time No Known Allergies Allergy Unverified 06/05/18 18:38 Home Medications Medication Instructions Recorded Confirmed Last Taken Type No Known Home Medications [No 06/06/18 06/06/18 Unknown History Reported Home Medications] Active Meds: Active Medications Acetaminophen (Tylenol) 650 mg PO Q6H PRN PRN Reason: Pain, Mild (1-3) Last Admin: 06/10/18 14:30 Dose: 650 mg Acetaminophen/Hydrocodone Bitart ([place] 5/325) 2 each PO Q6H PRN PRN Reason: Pain, Moderate (4-6) Last Admin: 06/09/18 12:28 Dose: 2 each Bisacodyl (Dulcolax) 10 mg TX BID PRN PRN Reason: Constipation Dextrose (D50w (25gm) Syringe) 50 ml IV PRN PRN PRN Reason: Hypoglycemia Diphenhydramine HCl (Benadryl) 25 mg PO Q6H PRN PRN Reason: Itching Docusate Sodium (Colace) 100 mg PO BID [facility] Last Admin: 06/10/18 10:56 Dose: 100 mg Enoxaparin Sodium (Lovenox) 40 mg SUB-Q QDAY@2200 [facility] Last Admin: 06/09/18 21:54 Dose: 40 mg Ferrous Sulfate (Feosol) 325 mg PO BID [facility] Last Admin: 06/10/18 10:56 Dose: 325 mg Oxytocin/Sodium Chloride (Pitocin/Ns 20 Unit/1000ml Drip) 20 units in 1,000 mls @ 125 mls/hr IV DIRECT GAVIN Oxytocin/Sodium Chloride (Pitocin/Ns 20 Unit/1000ml Drip) 20 units in 1,000 mls @ 250 mls/hr IV DIRECT GAVIN Ibuprofen (Motrin) 600 mg PO Q6H [facility] Last Admin: 06/10/18 10:56 Dose: 600 mg Insulin Human Lispro (Humalog) 0 unit SUB-Q ACHS [facility]; Protocol Last Admin: 06/10/18 11:30 Dose: Not Given Insulin Human Regular (Humulin R) 0 units SUB-Q Q6HR [facility]; Protocol Last Admin: 06/10/18 12:00 Dose: Not Given Levetiracetam (Keppra) 750 mg PO BID [facility] Lorazepam (Ativan) 1 mg IV Q4H PRN PRN Reason: Seizures Last Admin: 06/10/18 11:25 Dose: 1 mg Magnesium Hydroxide (Milk Of Magnesia) 30 ml PO HS PRN PRN Reason: Constipation Metformin HCl (Glucophage) 500 mg PO BIDDIAB [facility] Last Admin: 06/10/18 10:58 Dose: 500 mg Multi-Ingredient Ointment (Lansinoh) 1 applic TP PRN PRN PRN Reason: Sore Nipples Multivitamins/Iron/Calcium ( Vitamin) 1 each PO QDAY [facility] Last Admin: 06/10/18 10:56 Dose: 1 each Ondansetron HCl (Zofran) 4 mg IV Q8H PRN PRN Reason: Nausea And Vomiting Promethazine HCl (Phenergan) 25 mg TX Q6H PRN PRN Reason: Nausea And Vomiting Promethazine HCl (Phenergan) 25 mg PO Q6H PRN PRN Reason: Nausea And Vomiting Witch Josefa/Glycerin (Tucks Pad) 1 each TP PRN PRN PRN Reason: Hemorrhoid/cleansing/soothing Physical Examination - Vital Signs Vital Signs: Vital Signs Pulse BP 91 H 118/60 06/05/18 19:16 06/05/18 19:16 Results - Laboratory Findings CBC and BMP: 06/08/18 05:17 06/06/18 05:52 Abnormal Lab Findings: Abnormal Labs 06/05/18 06/06/18 06/06/18 21:04 02:38 05:52 Sodium 135 L Chloride 97.4 L Creatinine 0.6 L Glucose 210 H POC Glucose 215 H 225 H Hemoglobin A1c Total Protein 5.7 L Albumin 3.3 L 06/06/18 06/06/18 06/07/18 05:52 18:07 00:55 Sodium Chloride Creatinine Glucose POC Glucose 265 H 250 H Hemoglobin A1c 9.8 H Total Protein Albumin 06/07/18 06/08/18 06/08/18 05:51 00:26 06:31 Sodium Chloride Creatinine Glucose POC Glucose 241 H 344 H 199 H Hemoglobin A1c Total Protein Albumin 06/08/18 06/08/18 06/08/18 12:07 18:15 20:00 Sodium Chloride Creatinine Glucose POC Glucose 184 H 256 H 238 H Hemoglobin A1c Total Protein Albumin 06/09/18 06/09/18 06/09/18 00:31 07:10 12:50 Sodium Chloride Creatinine Glucose POC Glucose 108 H 121 H 134 H Hemoglobin A1c Total Protein Albumin 06/09/18 06/09/18 06/10/18 15:46 21:52 06:57 Sodium Chloride Creatinine Glucose POC Glucose 285 H 170 H 109 H Hemoglobin A1c Total Protein Albumin 06/10/18 06/10/18 13:00 17:39 Sodium Chloride Creatinine Glucose POC Glucose 130 H 128 H Hemoglobin A1c Total Protein Albumin
--- NOTE | 2018-06-10 20:02 | Progress Note ---
Assessment and Plan - Patient Problems (1) 36 weeks gestation of Onset Date: 06/06/18 Current Visit: Yes Status: Acute (2) demise Current Visit: Yes Status: Acute (3) Diabetes in Current Visit: Yes Status: Acute (4) Vaginal delivery Current Visit: Yes Status: Acute Plan to address problem: Continue routine care. Pt to F/U with [place] after discharge. (5) Shoulder dystocia, delivered Current Visit: Yes Status: Acute (6) Seizure Current Visit: Yes Status: Acute Plan to address problem: Neurologist will follow patient after head CT. Subjective - Subjective Date of service: 06/10/18 Principal diagnosis: day 2 S/P VAVD following IUFD Interval history: Patient was admitted at 36+ weeks with demise. Her vaginal delivery was complicated with shoulder dystocia and a third degree laceration. She had a witnessed seizure episode and was transferred to the ICU. She has been under the care of the hospitalist team. Pre-eclampsia was ruled out. She was started on keppra. She has not had any further seizure episodes. The neurologist saw her today and recommended a head CT. Patient denies any complaint. She describes her lochia as mild. Her uterus is firm. Objective - Vital Signs Latest vital signs: Vital Signs Temp Pulse Resp BP BP Pulse Ox 06/10/18 11:32 124/79 06/10/18 10:01 97.8 F 80 18 123/85 99 06/10/18 06:07 98.2 F 84 18 121/68 99 06/10/18 00:57 97.6 F 81 20 113/70 99 06/10/18 00:06 83 113/70 97 06/09/18 20:45 98.3 F 62 18 111/57 98 Intake and Output 06/10/18 06/10/18 06/10/18 07:59 15:59 23:59 Other: Weight 81.647 kg Patient Weight 06/10/18 23:59 Weight 81.647 kg - Exam Cardiovascular: Present: Normal S1, Normal S2 Lungs: Present: Clear to auscultation Vulva: both: normal - Labs Labs: Abnormal lab results 06/09/18 06/10/18 06/10/18 Range/Units 21:52 06:57 13:00 POC Glucose 170 H 109 H 130 H (70-105) 06/10/18 Range/Units 17:39 POC Glucose 128 H (70-105)
--- NOTE | 2018-06-10 20:52 | Cat Scan Report ---
FINAL REPORT PROCEDURE: CT HEAD/BRAIN WO CON TECHNIQUE: Computerized tomography of the head was performed without contrast material. HISTORY: seizrue like activity COMPARISON: No prior studies are available for comparison. FINDINGS: Brain: Brain density appears normal. No evidence of intracranial hemorrhage. No parenchymal hemorrhage, mass lesions or mass effect are seen. No abnormal extraxial fluid collects or masses are seen. Ventricles: Ventricles are normal size and are midline. Bone Windows: No evidence of skull fracture. Paranasal sinuses: Visualized portions appear clear. Mastoid air cells: Clear IMPRESSION: Negative examination. If clinically indicated MRI of the brain could be obtained to evaluate for possible seizure focus.
[2018-06-10] MEDS: KEPPRA PO SCH (23:09)
[2018-06-10] MEDS: LOVENOX SUB-Q SCH (23:10)
[2018-06-11] MEDS: MOTRIN PO SCH ×5 (05:17→21:48)
--- NOTE | 2018-06-11 08:28 | Progress Note ---
Assessment and Plan PPD# 4 s/p VAVD of IUFD -New onset seizure d/o -s/p Psychiatry and Neurology -s/p Negative CT head P: -Spoke with hospitalist, Dr Ye, she has been cleared for D/C after EEG result. She will not require medication -Will start discharge process at this time -Dr. Beltre to discharge after EEG complete - Patient Problems (1) demise > 22 weeks, delivered, current hospitalization Onset Date: 06/06/18 Current Visit: Yes Status: Acute (2) New onset seizure Current Visit: Yes Status: Acute Subjective - Subjective Date of service: 06/11/18 Principal diagnosis: day 4 S/P VAVD following IUFD Interval history: Patient seen and examined, stable doing well. No further seizure episode overnight No fever or chills, appropriate lochial, adequate bowel and bladder function Patient reports: appetite normal, voiding normally, pain well controlled, flatus , ambulating normally, no dizzy ambulation, no nauseated : Objective - Vital Signs Latest vital signs: Vital Signs Temp Pulse Resp BP BP Pulse Ox 06/11/18 05:17 18 06/11/18 04:20 97.6 F 69 20 105/60 99 06/10/18 23:57 98.1 F 89 20 121/80 98 06/10/18 23:12 18 06/10/18 20:42 98.1 F 77 20 120/80 98 06/10/18 11:32 124/79 06/10/18 10:01 97.8 F 80 18 123/85 99 Intake and Output 06/10/18 06/11/18 06/11/18 23:59 07:59 15:59 Other: Voiding Method Toilet # Voids Void 3 Weight 81.647 kg - Exam Abdomen: Present: normal appearance, soft. Absent: distention, tenderness, guarding, rigidity Uterus: Present: firm, fundal height below umbilicus. Absent: tenderness Extremities: Present: normal - Labs Labs: Abnormal lab results 06/10/18 06/10/18 Range/Units 13:00 17:39 POC Glucose 130 H 128 H (70-105)
--- NOTE | 2018-06-11 08:32 | Discharge Summary ---
Providers - Providers Date of Admission: 06/05/18 18:26 Date of discharge: 06/11/18 Attending physician: LIBBY BECK 06/06/18 03:00 Consult to Physician [CONS] Urgent Comment: Consulting Provider: BRENDA NOYOLA Physician Instructions: Reason For Exam: new onset seizure 06/08/18 12:55 Consult to Case Management [CONS] Routine Services Needed at Discharge: Motorcoach Operator Notified:: case monitor Additional Physician Instructions: Needs to speak with grief counslor prior to discharge tomorrow. 06/08/18 20:57 Consult to Dietitian/Nutrition [CONS] Routine Physician Instructions: Reason For Exam: Reason for Consult: Nutrition Recommendations Reason for Consult: Malnutrition 06/09/18 14:24 Consult to Mental Health [CONS] Routine Reason For Exam: emotional distress Place consult to:: mental health Notified:: yes Phone number called:: [phone] Was contact made?: No If yes, spoke with:: - Time called:: 14:22 Comment:: left message only option/[id number] no answer 06/09/18 15:41 Consult to Physician [CONS] Routine Comment: Consulting Provider: MERVIN ESPARZA Physician Instructions: call in AM Reason For Exam: new onset of seizure Primary care physician: LIBBY BECK Hospitalization Reason for admission: induction of labor, IUFD Delivery: vacuum extraction Episiotomy: none Laceration: 3rd degree Incision: dry, intact Other procedures: none complications: other (seizure-like activity) Discharge diagnosis: IUP at term delivered, intrapartum demise Pertinent studies: CT head EEG (to be performed 06/11/18) Hospital course: Patient was transferred to mother-baby after delivery. Postop course complicated by seizure-like activity on day #1. She was transferred to the medical floor where she was seen by the hospitalist, psychiatric and neurology. Psychiatry assessment: Impression: Adjustment DO. Today the patient is calm and cooperative during the assessment. Neurology consult is pending. DDx: R/O PP Depression, R/O MDD Recommendation/Plan: The patient can follow up with [facility] for therapy sessions once discharged. Will follow up with patient in 24 hours. Neurology assessment: Dx IMP: 1. 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 2. S/P still of fetus at 22 weeks RECC: 1. She needs EEG and CT of head. If not ordered, I will do so. 2. See no need for AED Rx 3. Go from there. CT head was negative. Spoke to the hospitalist, will discharge after EEG is complete. No medication needed per Psychiatry and Neurology Condition at discharge: Good Disposition: DC-01 TO HOME OR SELFCARE - Discharge Diagnoses (1) Vacuum extraction, delivered, current hospitalization Status: Acute (2) demise > 22 weeks, delivered, current hospitalization Status: Acute (3) New onset seizure Status: Acute Plan - Provider Discharge Summary Activity: no sex for 6 weeks, no heavy lifting 4 weeks, no strenuous exercise Diet: routine Instructions: routine Additional instructions: [] Smoking cessation referral if applicable(refer to patient education folder for contact #) [] Refer to [facility] Booklet Call your doctor immediately for: * Fever > 100.5 * Heavy vaginal bleeding ( >1 pad per hour) * Severe persistent headache * Shortness of breath * Reddened, hot, painful area to leg or breast * Drainage or odor from incision. * Keep incision clean and dry at all times and follow doctor's instructions regarding bathing/showering - Follow up plan Follow up: MERVIN ESPARZA MD [Staff Physician] - 7 Days BHAVESH MONSALVE OPT[employer] TECHNICAL OFFICER [Advanced Practice Nurse] - 3 Days LIBBY BECK MD [Primary Care Provider] - 10 Days
[2018-06-11] MEDS: GLUCOPHAGE PO SCH ×2 (09:58→16:06)
[2018-06-11] MEDS: KEPPRA PO SCH ×2 (09:58→21:37)
[2018-06-11] MEDS: COLACE PO SCH ×2 (09:58→21:37)
[2018-06-11] MEDS: PRENATAL VITAMIN PO SCH (09:59)
[2018-06-11] MEDS: FEOSOL PO SCH ×2 (09:59→21:37)
[2018-06-11] MEDS: HumuLIN R SUB-Q SCH ×4 (10:00→18:07)
[2018-06-11] MEDS: HumaLOG SUB-Q SCH ×4 (10:00→21:40)
--- NOTE | 2018-06-11 10:36 | Progress Note ---
Subjective - Reason for Consult Consult date: 06/11/18 Reason for consult: Psychiatry Follow-up - Chief Complaint Chief complaint: "I don't want to eat" 22yo BF EDC 06/29/18; EGA 36 4/7 weeks presents to L&D complaining of decreased movement x 2 weeks. She was sent to L&D after no FHT's obtained in the office - u/s confirmed demise. Per the record, the patient has experienced seizure activity since her admission to the hospital. Psychiatry was consulted to see patient reference "emotional distress." Today the patient is emotional during the assessment. She stated that she does not want to eat, she prefer to starve herself to "." She stated that she has done this before. She would not confirm or deny purging in the past. She is adamant about being depressed and sad about the loss of her unborn child. She stated, "Anyone would feel like me." She would not confirm or deny SI's when asked. She denies HI's and AVH's. She stated not sleeping well last night. Spoke with the patient's mother Asmita Navarro about the 1013 criteria. She was informed that the patient will be assess daily by the psychiatry team. Mental Status Exam - Vital signs Last Vital Signs Temp 97.8 F 06/11/18 08:00 Pulse 74 06/11/18 07:44 Resp 18 06/11/18 07:44 BP 119/74 06/11/18 07:44 Pulse Ox 99 06/11/18 07:44 - Exam Narrative exam: MSE: Appearance: emotional Behavior: poor eye contact Speech: regular rate and tone Mood: "depressed" Affect: congruent to mood Thought Process: circumstantial Thought Content: denies HI's and AVH's Motor Activity: sitting up in bed Cognition: A/O x 3 Insight: variable Judgment: poor Assessment and Plan Impression: Depression. Today the patient is emotional during the assessment. The patient has a hx of self-injury. DDx: MDD, Unspecified Eating DO Recommendation/Plan: Initiate 1013 and reassess patient in 24 hours to determine proper dispo. Start Remeron 15 mg PO HS for depression. Discussed possible suicidality/medication induced lisa with patient reference Remeron. Discussed generalized coping skills with patient.
--- NOTE | 2018-06-11 14:05 | Progress Note ---
Assessment and Plan Assessment and plan: Patient is 22 yo woman with a history childhood sz which resolved in adolescence (or just prior to adolescence) who presented with miscarriage. She delivered still born. Then patient developed sz like activity and Hospitalists were consulted. 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 -Gestational DM: continue metformin and ssi -Miscarriage: surveillance analyst managing -DVT prophylaxis on sq lovenox Medical stable for discharge from IM standpoint once mental health clears. We continue to follow as consultants. History Interval history: Patient was seen and examined. Follow-up on current diagnosis of seizures. Overnight uneventful. Patient denies any chest pain, shortness breath, nausea/ vomiting or severe headaches. Imaging, nursing note, chart, labs and old chart reviewed. Hospitalist Physical - Physical exam Narrative exam: GEN: WDWN, NAD, Awake, drowsy Orientated x 3 HEENT: NCAT, EOMI, PERRL, OP Clear NECK: supple, no adenopathy, no thyromegaly, no JVD CVS/HEART: RRR, normal S1S2, pulses present bilaterally CHEST/LUNGS: CTA B, Symmetrical chest expansion, good air entry bilaterally GI/Abdomen: soft, nd, mild diffuse tender, good bowel sounds, no guarding or rebound /Bladder: no suprapubic tenderness, no CVA or paraspinal tenderness EXT/Skin: no c/c/e, no obvious rash MSK: FROM x 4 Neuro: CN 2-12 grossly intact, no new focal deficits Psych: calm - Constitutional Vitals: Temp Pulse Resp BP Pulse Ox 97.8 F 74 18 119/74 99 06/11/18 08:00 06/11/18 07:44 06/11/18 11:13 06/11/18 07:44 06/11/18 07:44 General appearance: Present: no acute distress, well-nourished Results - Labs CBC & Chem 7: 06/08/18 05:17 06/06/18 05:52 Labs: Laboratory Last Values WBC 6.9 K/mm3 (4.5-11.0) 06/05/18 21:20 RBC 4.35 M/mm3 (3.65-5.03) 06/05/18 21:20 Hgb 11.2 gm/dl (10.1-14.3) 06/08/18 05:17 Hct 34.0 % (30.3-42.9) 06/08/18 05:17 MCV 92 fl (79-97) 06/05/18 21:20 MCH 31 pg (28-32) 06/05/18 21:20 MCHC 34 % (30-34) 06/05/18 21:20 RDW 13.2 % (13.2-15.2) 06/05/18 21:20 Plt Count 164 K/mm3 (140-440) 06/05/18 21:20 PT 12.6 Sec. (12.2-14.9) 06/06/18 05:52 INR 0.90 (0.87-1.13) 06/06/18 05:52 APTT 26.4 Sec. (24.2-36.6) 06/06/18 05:52 Fibrinogen 447 mg/dl (211-480) 06/06/18 05:52 Sodium 135 mmol/L (137-145) L 06/06/18 05:52 Potassium 4.3 mmol/L (3.6-5.0) 06/06/18 05:52 Chloride 97.4 mmol/L (98-107) L 06/06/18 05:52 Carbon Dioxide 23 mmol/L (22-30) 06/06/18 05:52 Anion Gap 19 mmol/L 06/06/18 05:52 BUN 7 mg/dL (7-17) 06/06/18 05:52 Creatinine 0.6 mg/dL (0.7-1.2) L 06/06/18 05:52 Estimated GFR > 60 ml/min 06/06/18 05:52 BUN/Creatinine Ratio 12 % 06/06/18 05:52 Glucose 210 mg/dL (65-100) H 06/06/18 05:52 POC Glucose 78 (70-105) 06/11/18 07:02 Hemoglobin A1c 9.8 % (4-6) H 06/06/18 05:52 Calcium 8.9 mg/dL (8.4-10.2) 06/06/18 05:52 Total Bilirubin 0.60 mg/dL (0.1-1.2) 06/06/18 05:52 AST 19 units/L (5-40) 06/06/18 05:52 ALT 17 units/L (7-56) 06/06/18 05:52 Alkaline Phosphatase 115 units/L (35-129) 06/06/18 05:52 Total Protein 5.7 g/dL (6.3-8.2) L 06/06/18 05:52 Albumin 3.3 g/dL (3.9-5) L 06/06/18 05:52 Albumin/Globulin Ratio 1.4 % 06/06/18 05:52 Urine Opiates Screen Presumptive negative 06/05/18 21:20 Urine Methadone Screen Presumptive negative 06/05/18 21:20 Ur Barbiturates Screen Presumptive negative 06/05/18 21:20 Ur Phencyclidine Scrn Presumptive negative 06/05/18 21:20 Ur Amphetamines Screen Presumptive negative 06/05/18 21:20 U Benzodiazepines Scrn Presumptive negative 06/05/18 21:20 Urine Cocaine Screen Presumptive negative 06/05/18 21:20 U Marijuana (THC) Screen Presumptive negative 06/05/18 21:20 Drugs of Abuse Note Disclamer 06/05/18 21:20 RPR Nonreactive (Nonreactive) 06/05/18 21:20 Blood Type O POSITIVE 06/05/18 21:20 Antibody Screen Negative 06/05/18 21:20
[2018-06-11] MEDS: NORCO 5/325 PO PRN (16:06)
[2018-06-11] MEDS: LOVENOX SUB-Q SCH (21:40)
[2018-06-11] MEDS ORDERED: REMERON PO SCH (22:00)
[2018-06-12] MEDS: MOTRIN PO SCH ×3 (04:15→17:58)
[2018-06-12] MEDS: HumuLIN R SUB-Q SCH ×4 (06:15→17:59)
[2018-06-12] MEDS: HumaLOG SUB-Q SCH ×3 (08:34→17:58)
[2018-06-12] MEDS: FEOSOL PO SCH (09:23)
[2018-06-12] MEDS: PRENATAL VITAMIN PO SCH (09:23)
[2018-06-12] MEDS: COLACE PO SCH (09:23)
[2018-06-12] MEDS: KEPPRA PO SCH (09:24)
[2018-06-12] MEDS: GLUCOPHAGE PO SCH ×2 (09:24→17:58)
--- NOTE | 2018-06-12 11:58 | Progress Note ---
Assessment and Plan Assessment and plan: Patient is 22 yo woman with a history childhood sz which resolved in adolescence (or just prior to adolescence) who presented with miscarriage. She delivered still born. Then patient developed sz like activity and Hospitalists were consulted. 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 Patient is upset and wants to go home. -Gestational DM: continue metformin and ssi -Premature Delivery of stillborn: acute specialist admitted -DVT prophylaxis on sq lovenox Medical stable for discharge from IM standpoint, discharge once Mental Health/ Psych clears. We will continue to follow as consultants. History Interval history: Patient was seen and examined. Follow-up on current diagnosis of seizures. Overnight uneventful. Patient denies any chest pain, shortness breath, nausea/ vomiting or severe headaches. Imaging, nursing note, chart, labs and old chart reviewed. Hospitalist Physical - Physical exam Narrative exam: GEN: WDWN, NAD, Awake, drowsy Orientated x 3 HEENT: NCAT, EOMI, PERRL, OP Clear NECK: supple, no adenopathy, no thyromegaly, no JVD CVS/HEART: RRR, normal S1S2, pulses present bilaterally CHEST/LUNGS: CTA B, Symmetrical chest expansion, good air entry bilaterally GI/Abdomen: soft, nd, mild diffuse tender, good bowel sounds, no guarding or rebound /Bladder: no suprapubic tenderness, no CVA or paraspinal tenderness EXT/Skin: no c/c/e, no obvious rash MSK: FROM x 4 Neuro: CN 2-12 grossly intact, no new focal deficits Psych: calm - Constitutional Vitals: Temp Pulse Resp BP Pulse Ox 98.3 F 75 18 85/50 97 06/12/18 05:35 06/12/18 05:35 06/12/18 05:35 06/12/18 05:35 06/12/18 05:35 General appearance: Present: no acute distress, well-nourished Results - Labs CBC & Chem 7: 06/08/18 05:17 06/06/18 05:52 Labs: Laboratory Last Values WBC 6.9 K/mm3 (4.5-11.0) 06/05/18 21:20 RBC 4.35 M/mm3 (3.65-5.03) 06/05/18 21:20 Hgb 11.2 gm/dl (10.1-14.3) 06/08/18 05:17 Hct 34.0 % (30.3-42.9) 06/08/18 05:17 MCV 92 fl (79-97) 06/05/18 21:20 MCH 31 pg (28-32) 06/05/18 21:20 MCHC 34 % (30-34) 06/05/18 21:20 RDW 13.2 % (13.2-15.2) 06/05/18 21:20 Plt Count 164 K/mm3 (140-440) 06/05/18 21:20 PT 12.6 Sec. (12.2-14.9) 06/06/18 05:52 INR 0.90 (0.87-1.13) 06/06/18 05:52 APTT 26.4 Sec. (24.2-36.6) 06/06/18 05:52 Fibrinogen 447 mg/dl (211-480) 06/06/18 05:52 Sodium 135 mmol/L (137-145) L 06/06/18 05:52 Potassium 4.3 mmol/L (3.6-5.0) 06/06/18 05:52 Chloride 97.4 mmol/L (98-107) L 06/06/18 05:52 Carbon Dioxide 23 mmol/L (22-30) 06/06/18 05:52 Anion Gap 19 mmol/L 06/06/18 05:52 BUN 7 mg/dL (7-17) 06/06/18 05:52 Creatinine 0.6 mg/dL (0.7-1.2) L 06/06/18 05:52 Estimated GFR > 60 ml/min 06/06/18 05:52 BUN/Creatinine Ratio 12 % 06/06/18 05:52 Glucose 210 mg/dL (65-100) H 06/06/18 05:52 POC Glucose 82 (70-105) 06/12/18 07:54 Hemoglobin A1c 9.8 % (4-6) H 06/06/18 05:52 Calcium 8.9 mg/dL (8.4-10.2) 06/06/18 05:52 Total Bilirubin 0.60 mg/dL (0.1-1.2) 06/06/18 05:52 AST 19 units/L (5-40) 06/06/18 05:52 ALT 17 units/L (7-56) 06/06/18 05:52 Alkaline Phosphatase 115 units/L (35-129) 06/06/18 05:52 Total Protein 5.7 g/dL (6.3-8.2) L 06/06/18 05:52 Albumin 3.3 g/dL (3.9-5) L 06/06/18 05:52 Albumin/Globulin Ratio 1.4 % 06/06/18 05:52 Urine Opiates Screen Presumptive negative 06/05/18 21:20 Urine Methadone Screen Presumptive negative 06/05/18 21:20 Ur Barbiturates Screen Presumptive negative 06/05/18 21:20 Ur Phencyclidine Scrn Presumptive negative 06/05/18 21:20 Ur Amphetamines Screen Presumptive negative 06/05/18 21:20 U Benzodiazepines Scrn Presumptive negative 06/05/18 21:20 Urine Cocaine Screen Presumptive negative 06/05/18 21:20 U Marijuana (THC) Screen Presumptive negative 06/05/18 21:20 Drugs of Abuse Note Disclamer 06/05/18 21:20 RPR Nonreactive (Nonreactive) 06/05/18 21:20 Blood Type O POSITIVE 06/05/18 21:20 Antibody Screen Negative 06/05/18 21:20
--- NOTE | 2018-06-12 13:43 | Progress Note ---
Subjective Date of service: 06/12/18 Principal diagnosis: day 4 S/P VAVD following IUFD Interval history: NEUROLOGY FOLLOW UP NOTE: No new sx/sgns. EEG - shows 9 Hz well developed well regulated background. during brief drowsiness, voltages attenuate and frequency slow. Stage II sleep is not attained. IMP: Normal awake and drowsy EEG CT head normal - images reviewed. DXIMP: 1. Non-epileptic spell. RECC: 1. See no need for anti-convulsant Rx at this time. 2. Neuro workup complete. Go from there. If patient has spells in future, neuro re-eval will be in order as will Psychiatry eval. 3. Call as needed. Urszula Holland MD Objective - Vital Sign Vital Signs - 12hr 06/12/18 06/12/18 05:35 11:45 Temperature 98.3 F 98.6 F Pulse Rate 75 Respiratory 18 20 Rate Blood Pressure 85/50 O2 Sat by Pulse 97 100 Oximetry - Laboratory Findings CBC and BMP: 06/08/18 05:17 06/06/18 05:52 Abnormal Lab Findings: Abnormal Labs 06/05/18 06/06/18 06/06/18 21:04 02:38 05:52 Sodium 135 L Chloride 97.4 L Creatinine 0.6 L Glucose 210 H POC Glucose 215 H 225 H Hemoglobin A1c Total Protein 5.7 L Albumin 3.3 L 06/06/18 06/06/18 06/07/18 05:52 18:07 00:55 Sodium Chloride Creatinine Glucose POC Glucose 265 H 250 H Hemoglobin A1c 9.8 H Total Protein Albumin 06/07/18 06/08/18 06/08/18 05:51 00:26 06:31 Sodium Chloride Creatinine Glucose POC Glucose 241 H 344 H 199 H Hemoglobin A1c Total Protein Albumin 06/08/18 06/08/18 06/08/18 12:07 18:15 20:00 Sodium Chloride Creatinine Glucose POC Glucose 184 H 256 H 238 H Hemoglobin A1c Total Protein Albumin 06/09/18 06/09/18 06/09/18 00:31 07:10 12:50 Sodium Chloride Creatinine Glucose POC Glucose 108 H 121 H 134 H Hemoglobin A1c Total Protein Albumin 06/09/18 06/09/18 06/10/18 15:46 21:52 06:57 Sodium Chloride Creatinine Glucose POC Glucose 285 H 170 H 109 H Hemoglobin A1c Total Protein Albumin 06/10/18 06/10/18 06/11/18 13:00 17:39 18:03 Sodium Chloride Creatinine Glucose POC Glucose 130 H 128 H 125 H Hemoglobin A1c Total Protein Albumin 06/11/18 06/12/18 21:06 12:06 Sodium Chloride Creatinine Glucose POC Glucose 106 H 113 H Hemoglobin A1c Total Protein Albumin
[2018-06-12 17:36] VITALS: BP 131/57
== END 2018-06-12 19:30 | disposition home or self-care (01) | DRG 988 ==
LOC: TRG 18:25 → LD 18:26 → EEVIPCON 18:26 → LD 18:38 → OB 06-07 19:03 → 4A 06-09 02:59 → 3A 06-11 14:25
PROVIDERS: ADMIT Obstetrics & Gynecology; ATTEND Obstetrics & Gynecology
PROC: 00HU33Z Insertion of Infusion Device into Spinal Canal, Percutaneous Approach (ICD-10-PCS; principal; 2018-06-07)
PROC: 0DQR0ZZ Repair Anal Sphincter, Open Approach (ICD-10-PCS; 2018-06-07)
PROC: 10D07Z6 Extraction of Products of Conception, Vacuum, Via Natural or Artificial Opening (ICD-10-PCS; 2018-06-07)
PROC: 3E0R3BZ Introduction of Anesthetic Agent into Spinal Canal, Percutaneous Approach (ICD-10-PCS; 2018-06-07)
PROC: 3E033VJ Introduction of Other Hormone into Peripheral Vein, Percutaneous Approach (ICD-10-PCS; 2018-06-07)
PROC: 3E0234Z Introduction of Serum, Toxoid and Vaccine into Muscle, Percutaneous Approach (ICD-10-PCS; 2018-06-08)
DX: O36.4XX0 Maternal care for intrauterine death, not applicable or unspecified (principal); O70.20 Third degree perineal laceration during delivery, unspecified; O99.354 Diseases of the nervous system complicating childbirth; Z37.1 Single stillbirth; Z3A.36 36 weeks gestation of pregnancy; F44.5 Conversion disorder with seizures or convulsions; Z23 Encounter for immunization; O24.429 Gestational diabetes mellitus in childbirth, unspecified control; O42.013 Preterm premature rupture of membranes, onset of labor within 24 hours of rupture, third trimester; O66.0 Obstructed labor due to shoulder dystocia; O25.2 Malnutrition in childbirth; Z68.30 Body mass index [BMI] 30.0-30.9, adult; F53 Mental and behavioral disorders associated with the puerperium, not elsewhere classified; O99.52 Diseases of the respiratory system complicating childbirth; J45.909 Unspecified asthma, uncomplicated
CPT/HCPCS: 36415; 70450; 76815; 80053; 80307; 82962; 83036; 85014; 85018; 85027; 85384; 85610; 85730; 86592; 86850; 86900; 86901; 88307; 95819; J0595; J1650; J1815; J1953; J2060; J2405; J2590; J3010; J3475; J7120